=== PATIENT | female | born 1970 | race Caucasian/White ===

== ENCOUNTER 2017-12-11 10:22 | Emergency (ER) | payer BC, MEDICAID ==
[2017-12-11 10:46] VITALS: BP 147/73
--- NOTE | 2017-12-11 11:05 | EDM.PDOC ---
ED HPI GENERAL MEDICAL PROBLEM - General Chief Complaint: Cardiovascular Problem Stated Complaint: IRREGULAR HEARTBEAT Time Seen by Provider: 12/11/17 11:04 Source of Information: Reports: Patient History Limitations: Reports: No Limitations - History of Present Illness INITIAL COMMENTS - FREE TEXT/NARRATIVE: pt was sent from the clinic because she was having sig irregularities. She was found to have pulse in the 40s so she was not perfusing the ectopics. She has not had chest pain. She was at the clinic for iron infusion. Onset: Today Duration: Hour(s): Location: Reports: Chest, Other (pt was noted to have sig pvcs. ) Associated Symptoms: Reports: No Other Symptoms - Related Data Allergies Allergy/AdvReac Type Severity Reaction Status Date / Time cefoxitin sodium Allergy Hives Verified 12/11/17 10:46 [From Mefoxin] Home Meds: Home Meds Calcium Citrate/Vitamin D2 [Calcium Citrate with Vit D] 1 each PO BID 03/23/14 [ History] Cyanocobalamin (Vitamin B-12) [Vitamin B-12] 1,000 mcg SL DAILY 03/23/14 [ History] Cyclobenzaprine [Flexeril] 5 mg PO BEDTIME PRN 03/23/14 [History] Magnesium Glycinate [Mag Glycinate] 250 mg PO DAILY 03/23/14 [History] Multivitamin [Multi-Vitamin Daily] 1 each PO BID 03/23/14 [History] Potassium Gluconate 550 mg PO DAILY 03/23/14 [History] Vitamin B Complex 100 mg PO DAILY 03/23/14 [History] rOPINIRole HCl [Requip] 0.5 mg PO BEDTIME PRN 03/23/14 [History] Folic Acid 1 mg PO DAILY 04/09/15 [History] Ondansetron [Zofran ODT] 4 mg PO Q4H PRN 04/09/15 [History] traMADol HCl [Ultram] 50 - 100 mg PO Q6H 04/09/15 [History] Hydrochlorothiazide 12.5 mg PO DAILY 12/11/17 [History] Vitamin B6-pyridOXINE [Vitamin B6] 100 mg SUBCUT ASDIRECTED 12/11/17 [History] Past Medical History Cardiovascular History: Reports: Hypertension Gastrointestinal History: Reports: Bowel Obstruction, Cholelithiasis 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 Female Surgical History: Reports: Section, Tubal Ligation Social & Family History - Family History HEENT: Reports: Cataract, Glaucoma, Hearing Impairment, Impaired Vision, Retinal Detachment Cardiac: Reports: Hypertension Respiratory: Reports: Asthma GI: Reports: Bowel Obstruction, Cholelithiasis OBGYN: Reports: Dysfunctional uterine bleeding, Ectopic , Fibroids, , Recurrent Spontaneous Musculoskeletal: Reports: Arthritis, Fibromyalgia, Osteoarthritis Psychiatric: Reports: Abuse, Victim of, ADHD, Anxiety, Bipolar, Developmental Delay, Learning Disability, Panic Attack, Suicide Attempt Endocrine/Metabolic: Reports: Diabetes, type II, Hypothyroidism, Obesity/MBI 30+ Hematologic: Reports: Anemia, Anesthesia Reaction Oncologic: Reports: Colon, Leukemia, Lung - Tobacco Use Smoking Status *Q: Heavy Tobacco Smoker Years of Tobacco use: 30 Packs/Tins Daily: 1 Used Tobacco, but Quit: No Month Tobacco Last Used: october 2015 Second Hand Smoke Exposure: No - Caffeine Use Caffeine Use: Reports: None - Alcohol Use Days Per Week of Alcohol Use: 0 - Recreational Drug Use Recreational Drug Use: No ED ROS GENERAL - Review of Systems Review Of Systems: See Below Constitutional: Reports: No Symptoms HEENT: Reports: No Symptoms Respiratory: Reports: No Symptoms Cardiovascular: Reports: Palpitations, Other (pt was noted to have frequent pvcs. ) Endocrine: Reports: No Symptoms GI/Abdominal: Reports: No Symptoms : Reports: No Symptoms Musculoskeletal: Reports: No Symptoms Skin: Reports: No Symptoms Neurological: Reports: No Symptoms Hematologic/Lymphatic: Reports: Anemia, Other (pt is receiving fe infuaions at the clinic for her anemia. ) Immunologic: Reports: No Symptoms ED EXAM, GENERAL - Physical Exam Exam: See Below Free Text/Narrative:: pt arrived with a history of frequent pvcs. She had a perfusing pulse at 40, Pt has not had chest pain. Exam Limited By: No Limitations General Appearance: Alert, Anxious, Mild Distress Ears: Normal TMs Nose: Normal Inspection Throat/Mouth: Normal Inspection Head: Atraumatic Neck: Normal Inspection Respiratory/Chest: No Respiratory Distress Cardiovascular: Other (pt is having frquent pvcs. ) GI/Abdominal: Soft, Non-Tender, Other (pt is post gastric bypass and has lost about 100 lbs. ) (Female) Exam: Deferred Rectal (Female) Exam: Deferred Back Exam: Normal Inspection Extremities: Normal Inspection Neurological: Alert, Oriented, Normal Cognition Psychiatric: Normal Affect Course - Vital Signs Last Recorded V/S: Last Vital Signs Temp 36.4 C 12/11/17 10:43 Pulse 71 12/11/17 10:43 Resp 13 12/11/17 10:43 BP 147/73 H 12/11/17 10:43 Pulse Ox 100 12/11/17 10:43 - Orders/Labs/Meds Orders: Active Orders 24 hr Category Date Time Status EKG Documentation Completion [RC] ASDIRECTED Care 12/11/17 11:01 Active UA W/MICROSCOPIC [URIN] Urgent Lab 12/11/17 11:00 Uncollected EKG 12 Lead [EK] Routine Ther 12/11/17 11:01 Ordered Holter Monitor 48 Hr [EK] Routine Ther 12/11/17 12:12 Ordered Labs: Laboratory Tests 12/11/17 12/11/17 12/11/17 Range/Units 11:06 11:06 11:06 WBC 7.1 (4.5-11.0) K/uL RBC 4.31 (3.30-5.50) M/uL Hgb 11.8 L (12.0-15.0) g/dL Hct 37.3 (36.0-48.0) % MCV 87 (80-98) fL MCH 27 (27-31) pg MCHC 32 (32-36) % Plt Count 274 (150-400) K/uL Neut % (Auto) 70 H (36-66) % Lymph % (Auto) 20 L (24-44) % Kenton % (Auto) 6 (2-6) % Eos % (Auto) 3 (2-4) % Baso % (Auto) 1 (0-1) % Sodium 141 (140-148) mmol/L Potassium 3.8 (3.6-5.2) mmol/L Chloride 108 (100-108) mmol/L Carbon Dioxide 23 (21-32) mmol/L Anion Gap 9.7 (5.0-14.0) mmol/L BUN 17 (7-18) mg/dL Creatinine 1.0 (0.6-1.0) mg/dL Est Cr Clr Drug Dosing 61.91 mL/min Estimated GFR (MDRD) 59 L (>60) Glucose 88 (74-106) mg/dL Calcium 8.2 L (8.5-10.1) mg/dL Magnesium (1.8-2.4) mg/dL Total Bilirubin 0.2 D (0.2-1.0) mg/dL AST 18 (15-37) U/L ALT 23 (12-78) U/L Alkaline Phosphatase 86 (46-116) U/L Troponin I < 0.017 (0.000-0.056) ng/mL Total Protein 5.8 L (6.4-8.2) g/dL Albumin 3.5 (3.4-5.0) g/dL Globulin 2.3 (2.3-3.5) g/dL Albumin/Globulin Ratio 1.5 (1.2-2.2) 12/11/17 Range/Units 11:06 WBC (4.5-11.0) K/uL RBC (3.30-5.50) M/uL Hgb (12.0-15.0) g/dL Hct (36.0-48.0) % MCV (80-98) fL MCH (27-31) pg MCHC (32-36) % Plt Count (150-400) K/uL Neut % (Auto) (36-66) % Lymph % (Auto) (24-44) % Kenton % (Auto) (2-6) % Eos % (Auto) (2-4) % Baso % (Auto) (0-1) % Sodium (140-148) mmol/L Potassium (3.6-5.2) mmol/L Chloride (100-108) mmol/L Carbon Dioxide (21-32) mmol/L Anion Gap (5.0-14.0) mmol/L BUN (7-18) mg/dL Creatinine (0.6-1.0) mg/dL Est Cr Clr Drug Dosing mL/min Estimated GFR (MDRD) (>60) Glucose (74-106) mg/dL Calcium (8.5-10.1) mg/dL Magnesium 1.8 (1.8-2.4) mg/dL Total Bilirubin (0.2-1.0) mg/dL AST (15-37) U/L ALT (12-78) U/L Alkaline Phosphatase (46-116) U/L Troponin I (0.000-0.056) ng/mL Total Protein (6.4-8.2) g/dL Albumin (3.4-5.0) g/dL Globulin (2.3-3.5) g/dL Albumin/Globulin Ratio (1.2-2.2) - Re-Assessments/Exams Free Text/Narrative Re-Assessment/Exam: 12/11/17 12:13 pt arrived with a history of having ectopics every other beat when she first arrived. This has now improved. She did not have chest pain. 12/11/17 12:14 Her electrolytes and cardiac enzymes are normal, Her ekg looked good. Her mag was normal. Departure - Departure Time of Disposition: 12:16 Disposition: Home, Self-Care 01 Condition: Fair Clinical Impression: Ventricular ectopics, Anemia Referrals: Jerson Francisco MD [Primary Care Provider] - Forms: ED Department Discharge Care Plan Goals: 48 hour holter monitor, pt may have her fe infusion, copy labs and ekg and rhythm strips for her to take to her visit with Dr Francisco. - My Orders Last 24 Hours: My Active Orders 12/11/17 11:00 UA W/MICROSCOPIC [URIN] Urgent 12/11/17 11:01 EKG Documentation Completion [RC] ASDIRECTED EKG 12 Lead [EK] Routine 12/11/17 12:12 Holter Monitor 48 Hr [EK] Routine - Assessment/Plan Last 24 Hours: My Active Orders 12/11/17 11:00 UA W/MICROSCOPIC [URIN] Urgent 12/11/17 11:01 EKG Documentation Completion [RC] ASDIRECTED EKG 12 Lead [EK] Routine 12/11/17 12:12 Holter Monitor 48 Hr [EK] Routine
== END 2017-12-11 13:00 | disposition home or self-care (01) ==
LOC: JP.ED 10:22
DX: I49.3 Ventricular premature depolarization (principal); D64.9 Anemia, unspecified; I10 Essential (primary) hypertension; Z88.1 Allergy status to other antibiotic agents; Z79.899 Other long term (current) drug therapy; Z72.0 Tobacco use; Z98.84 Bariatric surgery status
CPT/HCPCS: 36415; 80053; 83735; 84484; 85025; 93005; 93010; 93225; 93226; 99285; 99285-25

== ENCOUNTER 2019-11-07 05:56 | Day surgery (SDC) | payer MEDICAID ==
[2019-11-07] MEDS ORDERED: Dextrose 5%-Lactated Ringers 1,000 ML IV SCH (07:00)
[2019-11-07] MEDS ORDERED: Propofol 200 MG/20 ML SDV ONE (07:34)
[2019-11-07] MEDS ORDERED: Midazolam 1 MG/ML 2 ML SDV ONE (07:35)
[2019-11-07] MEDS ORDERED: fentaNYL 100 MCG/2 ML SDV ONE (07:35)
[2019-11-07 09:08] VITALS: BP 113/80; PULSE 67
--- NOTE | 2019-11-12 12:32 | OR ---
DATE OF PROCEDURE: 11/07/2019 SURGEON: Luke Koehler MD PREOPERATIVE DIAGNOSIS: Indications for screening colonoscopy. POSTOPERATIVE DIAGNOSIS: Normal colonoscopic examination. OPERATIVE PROCEDURE: Flexible colonoscopy. ANESTHESIA: IV sedation. INDICATION FOR PROCEDURE: A 49-year-old presenting for initial colonoscopy, does have a family history of maternal grandmother having colon carcinoma. Plan is to proceed with a flexible colonoscopy with biopsies and/or polypectomy as indicated. Potential risks including bleeding and perforation were discussed, and the patient wishes to proceed. DETAILS OF PROCEDURE: The patient was taken to the operating room and placed in the left lateral decubitus position. IV sedation was administered after which the initial digital rectal exam was performed and was unremarkable. Colonoscope was then passed to the level of the cecum. The patient did have elongated and tortuous colon, but we were eventually able to reach the cecum, and the ileocecal valve was visualized. The prep generally was fairly good with only a small amount of liquid stool present. Apart from the elongation and tortuosity of the colon, no abnormalities were noted. Specifically, there were no areas of diverticular disease, no areas of colitis, and no polyps or other signs of neoplasia. The scope was then withdrawn, the above findings reconfirmed, and the procedure then concluded. RECOMMENDATIONS: This patient will need repeat colonoscopy in 5 years given the family history of colon carcinoma. Luke Koehler MD /[id number]
== END 2019-11-07 09:15 | disposition home or self-care (01) ==
LOC: JP.SDS 05:56
PROVIDERS: ATTEND Surgery
DX: Z12.11 Encounter for screening for malignant neoplasm of colon (principal); Q43.8 Other specified congenital malformations of intestine; I10 Essential (primary) hypertension; K21.9 Gastro-esophageal reflux disease without esophagitis
CPT/HCPCS: J2250; J2704; J3010; J7121

== ENCOUNTER 2024-12-05 08:34 | Day surgery (SDC) | payer OTHER ==
[~2024-12-05 08:34] MED LIST: Midazolam 1 MG/ML 2 ML SDV ONE; Propofol 200 MG/20 ML SDV ONE; fentaNYL 50 MCG/ML SDV ONE
[2024-12-05] MEDS: Lactated Ringers 1,000 ML IV SCH (08:55)
[2024-12-05] MEDS ORDERED: Propofol 200 MG/20 ML SDV ONE (10:06)
[2024-12-05 11:26] VITALS: BP 152/86; PULSE 58
== END 2024-12-05 11:28 | disposition home or self-care (01) ==
LOC: JP.SDS 08:34
PROVIDERS: ATTEND Surgery
DX: Z12.11 Encounter for screening for malignant neoplasm of colon (principal)
CPT/HCPCS: G0121; J2250; J2704; J3010; J7120